=== PATIENT | male | born 1975 ===

== ENCOUNTER 2017-02-14 02:52 | Emergency (ER) | payer SELFPAY ==
[~2017-02-14] VITALS: Ht 167.6 cm; Wt 68.2 kg
[2017-02-14 02:58] VITALS: Ht 167.6 cm; Wt 68.2 kg
--- NOTE | 2017-02-14 03:02 | ERD ---
ER Documentation Chief Complaint Chief Complaint MOOK RA,ETOH intoxication HPI 42-year-old man brought in by EMS for public intoxication, patient has a history of alcohol abuse and admits to drinking alcohol tonight. He denies suicidal homicidal ideation, no psychiatric issues, denies trauma, no fevers or chills, no vomiting or diarrhea, no blood per rectum or melena. Patient was transported here by EMS without further complications. ROS All systems reviewed and are negative except as per history of present illness. Allergies Allergies: Coded Allergies: No Known Allergy (Unverified , 02/14/17) PMhx/Soc Alcohol abuse FmHx Family History: No diabetes Physical Exam Vitals Vital Signs Date Time Temp Pulse Resp B/P Pulse Ox O2 Delivery O2 Flow Rate FiO2 02/14/17 02:58 97.8 103 18 138/77 97 Physical Exam GENERAL: Well-developed, well-nourished, intoxicated, alcohol on breath, afebrile HEENT: Moist mucous membranes, pink conjunctiva, no cervical spine tenderness or step-off deformities, no goiter, no jaundice or icterus, extraocular movements intact without pain. No submandibular induration, and no pharyngeal erythema NEURO: Alert and oriented 3, cranial nerves II through XII intact bilaterally, pupils equal round reactive to light, no focal deficits or facial asymmetry, sensation intact distally Strength 5/5 in upper and lower extremities bilaterally CARDIAC: Regular rate and rhythm, no murmurs rubs or gallops LUNGS: Clear bilaterally no wheezing crackles or stridor ABDOMEN: Soft nontender, no guarding, no rigidity, no rebound, no psoas sign no obturator sign. Normoactive bowel sounds SKIN: Warm and dry to touch, no abrasions, contusions, or hematomas, no lacerations, no ecchymosis, no target lesions, and without ulcers EXTREMITIES: No clubbing cyanosis or edema, calves are bilaterally symmetrical, no Homans sign, no popliteal cord sign. Distal pulses equal and bilateral PSYCH: Normal affect without agitation or irritability Results 24 hrs Laboratory Tests Test 02/14/17 04:35 Ethyl Alcohol Level 281.0mg/dl Current Medications Medications (Trade) Dose Ordered Sig/Manny Route PRN Reason Start Time Stop Time Status Last Admin Dose Admin Lorazepam (Ativan) 1 mg ONCE ONCE IM 02/14/17 03:30 02/14/17 03:52 DC Lorazepam (Ativan) 1 mg ONCE ONCE IM 02/14/17 03:30 02/14/17 03:31 DC 02/14/17 03:34 Procedures/[facility] I administered lorazepam 1 mg IM 1 for agitation. Ethanol level elevated at 281. Differential diagnoses considered, included but not limited to acute coronary syndrome, pulmonary embolism, aortic dissection, abdominal aortic aneurysm, sepsis, stroke, meningitis, encephalitis, pneumonia, appendicitis, cholecystitis , bowel obstruction, pyelonephritis, nephrolithiasis, cystitis, as well as metabolic, hematologic, and electrolyte abnormalities. As well as abscess, cellulitis, fractures, and dislocations. Patient feels much better at this time, and vital signs are normal, symptoms have improved. I did give strict instructions to return to the ED if symptoms continue or worsen, patient will otherwise follow-up with primary care physician. Patient understood instructions and agreed to plan. Disclaimer: Inadvertent spelling and grammatical errors are likely due to EHR/ dictation software use and do not reflect on the overall quality of patient care. Also, please note that the electronic time recorded on this note does not necessarily reflect the actual time of the patient encounter. Departure Diagnosis: Primary Impression: Alcoholic intoxication Complication of substance-induced condition: uncomplicated Qualified Code: F10.920 - Alcoholic intoxication without complication Additional Impression: Alcohol abuse Condition: Good Patient Instructions: Alcohol Intoxication, Alcohol Abuse Referrals: [facility] YOU HAVE RECEIVED A MEDICAL SCREENING EXAM AND THE RESULTS INDICATE THAT YOU DO NOT HAVE A CONDITION THAT REQUIRES URGENT TREATMENT IN THE EMERGENCY DEPARTMENT. FURTHER EVALUATION AND TREATMENT OF YOUR CONDITION CAN WAIT UNTIL YOU ARE SEEN IN YOUR DOCTORS OFFICE WITHIN THE NEXT 1-2 DAYS. IT IS YOUR RESPONSIBILITY TO MAKE AN APPOINTMENT FOR FOLOW-UP CARE. IF YOU HAVE A PRIMARY DOCTOR --you should call your primary doctor and schedule an appointment IF YOU DO NOT HAVE A PRIMARY DOCTOR YOU CAN CALL OUR PHYSICIAN REFERRAL HOTLINE AT IF YOU CAN NOT AFFORD TO SEE A PHYSICIAN YOU CAN CHOSE FROM THE FOLLOWING [facility] [id number] [facility]. [facility] [address] [facility] [address] [facility]. [facility] [address] [facility] [address] [facility]. [facility]. [address] MD Feb 14, 2017 03:02
[2017-02-14] MEDS ORDERED: LORAZEPAM 2 MG INJ IM ONE ×2 (03:30)
[2017-02-14 06:15] VITALS: BP 100/86; PULSE 80; RESP 18; TEMP 98
--- NOTE | 2017-02-14 08:43 | EN ---
Date/Time of Note Date/Time of Note DATE: 02/14/17 TIME: 08:39 ER Progress Note Observation Note Subjective: This patient was signed out to me by the overnight doc. Briefly, this is a 42-year-old male who is presenting with alcohol intoxication. The patient was signed out to me pending further observation until clinically sober. Family history: As indicated on the initial history and physical of this ER visit Objective: Vital signs reviewed Const: No apparent distress, well-developed, well-nourished Head: Normocephalic, Atraumatic Eyes: Normal Conjunctiva. ENT: Normal External Ears, Nose and Mouth. Neck: No meningismus. Resp: Symmetric chest wall allan, no audible wheezes Cardio: Deferred Abd: Non distended Skin: No petechiae or rashes Back: Deferred Ext: No cyanosis, or edema Neur: Awake and alert, oriented 4. No facial droop. Normal strength and sensation. Psych: Normal mood and affect Assessment: Alcohol intoxication Plan: The patient was evaluated until clinically sober. He is able to ambulate without difficulty. He tolerated oral intake without issue. The patient did not know where his wallet or cell phone was. It was searched for in the emergency department, but it does not appear that it was brought with him. The patient was told to follow-up with either the paramedics service or the police who initially found him prior to arrival. At this time, the patient is stable for discharge. He needs to follow-up with his primary care doctor in 2-3 days for reevaluation. He will be given precautions with which to return to the emergency department. WILLIAMS TERRELL MD Feb 14, 2017 08:43
== END 2017-02-14 12:44 | disposition home or self-care (01) ==
LOC: E/R 02:52
DX: F10.129 Alcohol abuse with intoxication, unspecified (principal); R40.2242 Coma scale, best verbal response, confused conversation, at arrival to emergency department; R40.2142 Coma scale, eyes open, spontaneous, at arrival to emergency department; R40.2362 Coma scale, best motor response, obeys commands, at arrival to emergency department
CPT/HCPCS: 80306; 96372; 99284; J2060